=== PATIENT | female | born 1985 | race Two or more races ===

== ENCOUNTER 2021-08-31 09:23 | Emergency (ER) | payer SELFPAY ==
[~2021-08-31] VITALS: Ht 149.9 cm; Wt 70.3 kg
[2021-08-31 09:31] VITALS: BP 117/76
[2021-08-31] MEDS ORDERED: cefTRIAXone SOD 1,000 MG VL IM ONE (11:15)
[2021-08-31] MEDS ORDERED: ACETAMINOPHEN 500 MG TAB PO ONE (11:15)
== END 2021-08-31 11:48 | disposition home or self-care (01) ==
LOC: ER 09:23
DX: J18.9 Pneumonia, unspecified organism (principal); J03.90 Acute tonsillitis, unspecified; Z20.822 Contact with and (suspected) exposure to COVID-19
CPT/HCPCS: 36415; 71046; 87426; 96372; 99284; J0696